=== PATIENT | female | born 1955 | race Caucasian/White ===

== ENCOUNTER → 2016-12-12 | Outpatient (CLI) | payer BC ==
--- NOTE | 2016-12-12 09:48 | US ---
EXAMINATION TYPE: US transvaginal DATE OF EXAM: 12/12/2016 9:27 AM COMPARISON: NONE CLINICAL HISTORY: R10.2 Acute Pelvic Pain. History of ablation over 13 years ago. TECHNIQUE: Transvaginal (TV) Date of LMP: 13 years prior EXAM MEASUREMENTS: Uterus: 5.2 x 2.9 x 3.9 cm Endometrial Stripe: 0.3 cm Right Ovary: not visualized due to overlying bowel/atrophy Left Ovary: not visualized due to overlying bowel/atrophy 1. Uterus: Anteverted peripheral calcifications 2. Endometrium: wnl 3. Right Ovary: not visualized due to overlying bowel/atrophy 4. Left Ovary: not visualized due to overlying bowel/atrophy 5. Bilateral Adnexa: wnl 6. Posterior cul-de-sac: wnl IMPRESSION: No suspicious finding is seen to account for patient's symptoms.
== END | disposition home or self-care (01) ==
LOC: RADUSWWP 09:02
PROVIDERS: ATTEND Family Medicine
DX: R10.2 Pelvic and perineal pain (principal)
CPT/HCPCS: 76830

== ENCOUNTER → 2017-06-05 | Outpatient (CLI) | payer BC ==
--- NOTE | 2017-06-06 09:16 | MM ---
Reason for exam: screening (asymptomatic). Last mammogram was performed 2 years and 4 months ago. History: Patient is postmenopausal. Family history of breast cancer in paternal aunt at age 50. Took hormonal contraceptives for 4 years. Physical Findings: A clinical breast exam by your physician is recommended on an annual basis and results should be correlated with mammographic findings. MG Screening Mammo w CAD Bilateral CC and MLO view(s) were taken. Prior study comparison: February 05, 2015, mammogram, performed at [facility]. February 04, 2014, mammogram, performed at [facility]. The breast tissue is heterogeneously dense. This may lower the sensitivity of mammography. No suspicious abnormality. No significant changes when compared with prior studies. ASSESSMENT: Negative, BI-RAD 1 RECOMMENDATION: Routine screening mammogram of both breasts in 1 year.
== END | disposition home or self-care (01) ==
LOC: RADMAMWWP 12:24
PROVIDERS: ATTEND Family Medicine
DX: Z12.31 Encounter for screening mammogram for malignant neoplasm of breast (principal)

== ENCOUNTER → 2018-06-15 | Outpatient (CLI) | payer BC | END | disposition home or self-care (01) | LOC: LABWHC1 09:13 | PROVIDERS: ATTEND Physician Assistant | DX: R70.1 Abnormal plasma viscosity (principal) | CPT/HCPCS: 36415; 84425 ==